=== PATIENT | male | born 1980 | race African-American/Black ===

== ENCOUNTER 2018-12-21 15:22 | Emergency (ER) | payer MEDICAID ==
[~2018-12-21] VITALS: Ht 180.3 cm; Wt 73.9 kg
[2018-12-21 15:27] VITALS: BP 137/76
--- NOTE | 2018-12-21 15:35 | NUR ---
PT C/O OF RT LEG PAIN , 5/10 AT THIS TIME. S/P SLIP AND FALL.CAN EASLIY MOVE LEG, NO SWELLING, NO REDNESS. SLIGHT ABRASION AT THE KNEE LEVEL. STATES TO HAVE SOME PAIN AT LFT 5TH FINGER . PT SEEN BY MD AT THE BEDSIDE. PEDAL PULSE WITHIN RANGE, CAP REFILL LESS THAN 3 SEC. WILL CONTINUE TO MONITOR PT.
[2018-12-21] MEDS ORDERED: KETOROLAC 60 MG/2 ML VIAL IM ONE (15:40)
--- NOTE | 2018-12-21 15:46 | NUR ---
technician plant and maintenance at bedside.
--- NOTE | 2018-12-21 16:00 | NUR ---
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
--- NOTE | 2018-12-21 16:30 | NUR ---
Patient discharged with v/s stable. Written and verbal after care instructions given and explained. Patient alert, oriented and verbalized understanding of instructions. Ambulatory with steady gait. All questions addressed prior to discharge. ID band removed. Patient advised to follow up with PMD. Rx of NAPROSYN AND TRAMADOL given. Patient educated on indication of medication including possible reaction and side effects. Opportunity to ask questions provided and answered.
[2018-12-21 16:31] VITALS: BP 137/76
== END 2018-12-21 16:30 | disposition home or self-care (01) ==
LOC: MED 15:22
DX: S83.91XA Sprain of unspecified site of right knee, initial encounter (principal); M79.645 Pain in left finger(s); W01.0XXA Fall on same level from slipping, tripping and stumbling without subsequent striking against object, initial encounter; Y93.02 Activity, running; Y92.89 Other specified places as the place of occurrence of the external cause; Y99.8 Other external cause status
CPT/HCPCS: 29505; 73562; 96372; 99283; J1885; Q0092